=== PATIENT | male | born 2000 | race Caucasian/White ===

== ENCOUNTER 2022-01-22 10:36 | Emergency (ER) | payer BC, OTHER ==
[2022-01-22 10:46] VITALS: BP 129/73; PULSE 79
[2022-01-22] MEDS ORDERED: Lidocaine 1% 10 ML MDV INJECT ONE (11:00)
[2022-01-22] MEDS ORDERED: Lidocaine/EPINEPHrine/Tetracaine Soln 1 ML TOP ONE (11:00)
== END 2022-01-22 13:01 | disposition home or self-care (01) ==
LOC: JD.ED 10:36
DX: L02.412 Cutaneous abscess of left axilla (principal); Z88.1 Allergy status to other antibiotic agents
CPT/HCPCS: 10060; 87070; 87077; 87186; 87205; 99283-25